=== PATIENT | male | born 1995 | race Two or more races ===

== ENCOUNTER 2022-05-01 09:08 | Outpatient (CLI) | payer OTHER | END 2022-05-01 09:23 | disposition home or self-care (01) | LOC: LAB 09:08 | PROVIDERS: ATTEND Internal Medicine Hematology & Oncology | DX: D50.8 Other iron deficiency anemias (principal); R79.9 Abnormal finding of blood chemistry, unspecified; I10 Essential (primary) hypertension; R74.02 Elevation of levels of lactic acid dehydrogenase [LDH]; K76.89 Other specified diseases of liver; D68.8 Other specified coagulation defects; E56.1 Deficiency of vitamin K; D69.1 Qualitative platelet defects; K82.9 Disease of gallbladder, unspecified; K80.10 Calculus of gallbladder with chronic cholecystitis without obstruction ==